=== PATIENT | male | born 1960 | race Caucasian/White ===

== ENCOUNTER 2022-02-05 13:53 | Emergency (ER) | payer OTHER, MEDICAID ==
[~2022-02-05] VITALS: Ht 180.3 cm; Wt 69.4 kg
[2022-02-05] MEDS ORDERED: ASPIRIN81 MG PO (14:31)
--- NOTE | 2022-02-08 13:54 | EKG ---
[facility] [address] [facility] [place], [place] [address] Signed Normal sinus rhythm Right atrial enlargement Rightward axis ST \T\ Marked T wave abnormality, consider anterolateral ischemia Abnormal ECG No previous ECGs available Confirmed by OLGA CHAN MD ([id number] on 02/08/2022 1:54:06 PM Electronically Signed By: OLGA CHAN MD 02/08/22 1354 PATIENT NAME: PEREZSAMANTHA Electrocardiogram DATE OF : 62 PHYSICIAN: OLGA CHAN MD REPORT #: [id number] REPORT IS CONFIDENTIAL AND NOT TO BE RELEASED WITHOUT AUTHORIZATION
== END 2022-02-05 18:10 | disposition home or self-care (01) ==
LOC: ED 13:53
DX: R07.89 Other chest pain (principal); Z79.82 Long term (current) use of aspirin
CPT/HCPCS: 36415; 71045; 80053; 84484; 85025; 93005; 93010; 96374; 99285-25; 99406; A9270